=== PATIENT | female | born 1975 | race Caucasian/White ===

== ENCOUNTER → 2018-11-13 | Outpatient (CLI) | payer OTHER | LOC: FIMAGING 16:07 | PROVIDERS: ATTEND Obstetrics & Gynecology | DX: Z12.31 Encounter for screening mammogram for malignant neoplasm of breast (principal); R92.0 Mammographic microcalcification found on diagnostic imaging of breast ==

== ENCOUNTER → 2018-11-25 | Outpatient (CLI) | payer OTHER | LOC: FIMAGING 14:41 ==

== ENCOUNTER → 2018-12-08 | Day surgery (SDC) | payer OTHER | LOC: FIMAGING 07:23 ==

== ENCOUNTER → 2018-12-17 | Outpatient (CLI) | payer OTHER | LOC: FIMAGING 06:51 ==